=== PATIENT | male | born 1970 ===

== ENCOUNTER 2022-06-10 07:00 | Day surgery (SDC) | payer BC ==
[~2022-06-10] VITALS: Ht 172.7 cm; Wt 77.3 kg
[~2022-06-10 07:00] MED LIST: HYDACE5 PO
--- NOTE | 2022-06-10 07:57 | NUR ---
06/10/22 0757 Radha Vargas HISTORY, CHART, MEDICATIONS AND ALLERGIES REVIEWED BEFORE START OF PROCEDURE. PATIENT CONFIRMS NPO STATUS AND AGREES WITH SCHEDULED PROCEDURE. 3-LEAD EKG REVIEWED WITH PHYSICIAN PRIOR TO START OF PROCEDURE. MONITOR INTACT WITH CONTINUOUS PULSE OXIMETRY,CAPNOGRAPHY, 3-LEAD EKG, INTERMITTENT BP. SUPPLEMENTAL O2 TO BE TITRATED THROUGHOUT PROCEDURE TO MAINTAIN O2 SATURATION ABOVE 90%. PATIENT DETERMINED TO BE ASA APPROPRIATE FOR PROPOFOL SEDATION PRIOR TO START OF PROCEDURE BY DR. GALINDO
--- NOTE | 2022-06-10 08:11 | NUR ---
Ambulatory in Day Surgery. History, Chart, Medications and Allergies reviewed before start of procedure. Patient States Post-Procedure ride home has been arranged WITH DAUGHTER.
== END 2022-06-10 23:41 | disposition home or self-care (01) ==
LOC: ORSCMMR 07:00 → ORD 08:00 → ORSCMMR 08:00
PROVIDERS: Internal Medicine Gastroenterology
PROC: 0DJD8ZZ Inspection of Lower Intestinal Tract, Via Natural or Artificial Opening Endoscopic (ICD-10-PCS; principal; 2022-06-10 08:00)
DX: Z12.11 Encounter for screening for malignant neoplasm of colon (principal)
CPT/HCPCS: J2704; J7120

== ENCOUNTER 2023-01-01 17:40 | Emergency (ER) | payer BC ==
[~2023-01-01] VITALS: Ht 170.2 cm; Wt 72.6 kg
[2023-01-01 18:00] VITALS: BP 152/84
== END 2023-01-01 19:52 | disposition home or self-care (01) ==
LOC: ER 17:40
DX: S43.102A Unspecified dislocation of left acromioclavicular joint, initial encounter (principal); Z88.5 Allergy status to narcotic agent; W17.89XA Other fall from one level to another, initial encounter
CPT/HCPCS: 73030